=== PATIENT | male | born 1965 ===

== ENCOUNTER 2017-08-19 10:10 | Outpatient (CLI) | payer OTHER ==
[~2017-08-19] VITALS: Ht 152.4 cm; Wt 93.0 kg
== END 2017-08-19 10:30 | disposition home or self-care (01) ==
LOC: OFIC 805 10:10
DX: H90.72 Mixed conductive and sensorineural hearing loss, unilateral, left ear, with unrestricted hearing on the contralateral side (principal); H61.23 Impacted cerumen, bilateral; H69.82 Other specified disorders of Eustachian tube, left ear

== ENCOUNTER 2017-09-02 09:55 | Outpatient (CLI) | payer OTHER ==
[~2017-09-02] VITALS: Ht 152.4 cm; Wt 93.0 kg
== END 2017-09-02 10:15 | disposition home or self-care (01) ==
LOC: OFIC 805 09:55
DX: H69.82 Other specified disorders of Eustachian tube, left ear (principal)